=== PATIENT | male | born 1950 | race Caucasian/White ===

== ENCOUNTER → 2018-03-23 08:03 | Outpatient (CLI) | payer BC, MEDICARE, SELFPAY ==
[2018-03-23 08:21] LABS: Basophils # 0.1 K/mm3 (0-0.2); Basophils % 1.2 % (0.1-2.0); Eosinophils # 0.6 K/mm3 (0.0-0.4); Eosinophils % 9.7 % (0.1-12.0); Hematocrit 48.2 % (42.0-52.0); Hemoglobin 15.9 g/dL (14.1-18.0); Lymphocytes # 2.2 K/mm3 (0.7-4.5); Lymphocytes % 35.8 K/mm3 (10-50); Mean Corpuscular HGB Conc 32.9 g/dL (31.8-35.4); Mean Corpuscular Hemoglobin 29.7 pg (27.0-31.2); Mean Corpuscular Volume 90.3 fl (80-94); Monocytes # 0.3 K/mm3 (0.1-1.0); Monocytes % 5.4 % (1.7-9.3); Neutrophils # 2.9 K/mm3 (1.8-7.8); Neutrophils % 47.9 % (37.0-80.0); Platelet Count 219 K/mm3 (142-424); Red Blood Count 5.34 M/mm3 (4.60-6.20); White Blood Count 6.1 K/mm3 (4.8-10.8)
[2018-03-23 09:18] LABS: Alanine Aminotransferase 41 U/L (12-78); Albumin Level 3.9 gm/dL (3.4-5.0); Albumin/Globulin Ratio 1.3 (1.1-1.8); Alkaline Phosphatase 62 U/L (46-116); Aspartate Amino Transferase 22 U/L (15-37); Bilirubin,Total 0.8 mg/dL (0.2-1.0); Blood Urea Nitrogen 13 mg/dL (7-18); Calcium 9.5 mg/dL (8.5-10.1); Carbon Dioxide 33 mmol/L (21.0-32.0); Chloride 106 mmol/L (98-107); Chol/HDL Ratio 3.7 (1-3.5); Cholesterol 207 mg/dL (140-200); Creatinine,Serum 1.04 mg/dL (0.70-1.30); Estimated Glomerular Filt Rate 71 ml/min (>60); GFR (African American) 86 ML/MIN (>60); Globulin 2.9 gm/dl (1.3-3.2); Glucose 113 mg/dL (74-106); HDL Cholesterol 56 mg/dL (27-67); LDL Cholesterol 135 mg/dL (0-130); Sodium 142 mmol/L (136-145); Total Protein,Serum 6.8 gm/dL (6.4-8.2); Triglycerides 78 mg/dL (30-200); VLDL Cholesterol 16 mg/dL (0-40)
== END ==
PROVIDERS: PCP Internal Medicine Adolescent Medicine; Visit Provider Internal Medicine Adolescent Medicine
DX: E78.5 Hyperlipidemia, unspecified (principal); K63.5 Polyp of colon; J45.30 Mild persistent asthma, uncomplicated
CPT/HCPCS: 36415; 80053; 80061; 85025

== ENCOUNTER 2018-09-30 16:00 | Outpatient (RCR) | payer BC, MEDICARE, SELFPAY | END 2018-09-30 16:05 | disposition home or self-care (01) | LOC: PT 16:00 | PROVIDERS: Visit Provider Orthopaedic Surgery | DX: Z96.651 Presence of right artificial knee joint (principal); M17.11 Unilateral primary osteoarthritis, right knee | CPT/HCPCS: 97010; 97014; 97016; 97110; 97140; 97163; 97164; G0283 ==

== ENCOUNTER → 2018-10-28 08:20 | Outpatient (CLI) | payer BC, MEDICARE, SELFPAY ==
[2018-10-28 10:02] LABS: Alanine Aminotransferase 26 U/L (12-78); Albumin Level 3.9 gm/dL (3.4-5.0); Albumin/Globulin Ratio 1.4 (1.1-1.8); Alkaline Phosphatase 66 U/L (46-116); Anion Gap 11.7 mEq/L (5-15); Aspartate Amino Transferase 18 U/L (15-37); Bilirubin,Total 0.7 mg/dL (0.2-1.0); Blood Urea Nitrogen 17 mg/dL (7-18); Calcium 9.3 mg/dL (8.5-10.1); Carbon Dioxide 29 mmol/L (21.0-32.0); Chloride 107 mmol/L (98-107); Creatinine,Serum 1.09 mg/dL (0.70-1.30); Estimated Glomerular Filt Rate 67 ml/min (>60); GFR (African American) 82 ML/MIN (>60); Globulin 2.7 gm/dl (1.3-3.2); Glucose 104 mg/dL (74-106); Potassium 4.7 mmoL/L (3.5-5.1); Sodium 143 mmol/L (136-145); Total Protein,Serum 6.6 gm/dL (6.4-8.2)
[2018-10-28 10:03] LABS: Hemoglobin A1C 5.4 % (0.0-7.0)
== END ==
PROVIDERS: Visit Provider Internal Medicine Adolescent Medicine
DX: R73.9 Hyperglycemia, unspecified (principal)
CPT/HCPCS: 36415; 80053; 83036

== ENCOUNTER → 2019-03-28 07:04 | Outpatient (CLI) | payer BC, MEDICARE, SELFPAY ==
[2019-03-28 08:48] LABS: Basophils # 0.1 K/mm3 (0-0.2); Basophils % 0.8 % (0.1-2.0); Eosinophils # 0.6 K/mm3 (0.0-0.4); Eosinophils % 5.5 % (0.1-12.0); Hemoglobin 15.9 g/dL (14.1-18.0); Lymphocytes # 3.5 K/mm3 (0.7-4.5); Lymphocytes % 31.5 % (10-50); Mean Corpuscular HGB Conc 33.2 g/dL (31.8-35.4); Mean Corpuscular Hemoglobin 30.4 pg (27.0-31.2); Mean Corpuscular Volume 91.7 fl (80-94); Mean Platelet Volume 7.2 fl (7.4-10.4); Monocytes # 0.6 K/mm3 (0.1-1.0); Monocytes % 5.2 % (1.7-9.3); Neutrophils # 6.3 K/mm3 (1.8-7.8); Platelet Count 318 K/mm3 (142-424); Red Blood Count 5.24 M/mm3 (4.60-6.20); Red Cell Distribution Width 13.2 % (11.5-17.5)
[2019-03-28 09:03] LABS: Alanine Aminotransferase 37 U/L (12-78); Albumin Level 3.5 gm/dL (3.4-5.0); Albumin/Globulin Ratio 1.3 (1.1-1.8); Alkaline Phosphatase 77 U/L (46-116); Anion Gap 10.6 mEq/L (5-15); Aspartate Amino Transferase 17 U/L (15-37); Bilirubin,Total 0.4 mg/dL (0.2-1.0); Blood Urea Nitrogen 16 mg/dL (7-18); Calcium 9.3 mg/dL (8.5-10.1); Carbon Dioxide 31 mmol/L (21.0-32.0); Chloride 105 mmol/L (98-107); Chol/HDL Ratio 3.6 (1-3.5); Cholesterol 183 mg/dL (140-200); Creatinine,Serum 0.94 mg/dL (0.70-1.30); Estimated Glomerular Filt Rate 80 ml/min (>60); GFR (African American) 97 ML/MIN (>60); Globulin 2.7 gm/dl (1.3-3.2); Glucose 98 mg/dL (74-106); HDL Cholesterol 51 mg/dL (27-67); LDL Cholesterol 118 mg/dL (0-130); Potassium 4.6 mmoL/L (3.5-5.1); Prostate Specific Ag Screen 0.8 ng/mL (0.0-4.0); Sodium 142 mmol/L (136-145); Total Protein,Serum 6.2 gm/dL (6.4-8.2); Triglycerides 70 mg/dL (30-200); VLDL Cholesterol 14 mg/dL (0-40)
[2019-03-28 10:10] LABS: Hemoglobin A1C 5.8 % (0.0-7.0)
== END ==
PROVIDERS: Visit Provider Internal Medicine Adolescent Medicine
DX: Z00.00 Encounter for general adult medical examination without abnormal findings (principal); Z12.5 Encounter for screening for malignant neoplasm of prostate
CPT/HCPCS: 36415; 80053; 80061; 83036; 85025; G0103

== ENCOUNTER → 2020-03-13 12:55 | Outpatient (CLI) | payer BC, MEDICARE, SELFPAY ==
--- NOTE | 2020-03-13 | XR_ITS ---
PROCEDURE: XR SACROILIAC JOINT BI MIN 3V CLINICAL INDICATION: R HIP PAIN, ARTHROPATHY OF R SACROILIAC JOINT COMPARISON: No exams were available for comparison FINDINGS: No fracture or dislocation. No lytic or blastic change. There is normal mineralization. The joint spaces are well-preserved. No significant degenerative/arthritic changes. No erosive changes evident. Other findings:Postsurgical changes at the lumbosacral junction. Please see lumbar spine report IMPRESSION: Negative SI joints Dictated by: Spencer Bowles MD 03/13/2020 14:50 Spencer Bowles MD in [place] 03/13/2020 14:50
--- NOTE | 2020-03-13 | XR_ITS ---
PROCEDURE: XR LUMBAR SPINE MIN 4V CLINICAL INDICATION: R HIP PAIN, ARTHROPATHY OF R SACROILIAC JOINT COMPARISON: CT ABWWO CT ABD W/WO CONTRAST from 08/14/2014 CR [id number] LUMBAR SPINE-2 TO 3 VIEWS from 12/10/2014 FINDINGS: No fracture or dislocation. No lytic or blastic change. There is normal mineralization. Minimal dextroscoliosis of the lumbar spine. There is degenerative disc disease at L1-L2 with small anterior osteophytes and minimal retrolisthesis of L1 of 5 mm. A sclerotic focus involves the posterior aspect of the L2 vertebral body unchanged and may be due to a bone island. There is degenerative disc disease at L4-5 and L5-S1 with postsurgical changes with inter pedicular screws at L5 and S1 with disc spacer at L5-S1. There is degenerative disc disease at L4-5 which is increased compared to the previous exam. One of the inter pedicular screws overlies the L4-5 disc space. Previously both screws were along the superior endplate of L5. There is some increased sclerosis along the inferior aspect of L4 vertebral body. Screw migration is a consideration. This may be the screw on the right at the L5 region. Suggest CT for further evaluation. IMPRESSION: 1. Degenerative changes and postsurgical changes as described above. 2. There is question of screw migration of the right L5 inter pedicular screw . CT may provide further evaluation. Dictated by: Spencer Bowles MD 03/13/2020 14:44 Spencer Bowles MD in [place] 03/13/2020 14:44
--- NOTE | 2020-03-13 | XR_ITS ---
PROCEDURE: XR HIP RT 2-3V W/PELVIS CLINICAL INDICATION: R HIP PAIN, ARTHROPATHY OF R SACROILIAC JOINT COMPARISON: CT ABDPELW/O CT ABD PELVIS W/O CONTRAST from 05/25/[address] ABD W/WO CONTRAST from 08/14/2014 FINDINGS: No fracture or dislocation. No lytic or blastic change. There is only minimal decrease in the joint space superiorly with minimal osteosclerosis suggesting minimal osteoarthritic change. The SI joint has an unremarkable appearance. There is an area of sclerosis of the right femoral head in the subcortical region suspicious for avascular necrosis. IMPRESSION: 1. 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 MRI may confirm. 2. Mild osteoarthritic change. Dictated by: Spencer Bowles MD 03/13/2020 14:48 Spencer Bowles MD in [place] 03/13/2020 14:48
== END ==
PROVIDERS: PCP Internal Medicine Adolescent Medicine; Visit Provider Internal Medicine Adolescent Medicine
DX: M25.551 Pain in right hip (principal); M47.818 Spondylosis without myelopathy or radiculopathy, sacral and sacrococcygeal region
CPT/HCPCS: 72110; 72202; 73502

== ENCOUNTER → 2020-03-25 13:26 | Outpatient (CLI) | payer BC, MEDICARE, SELFPAY ==
--- NOTE | 2020-03-25 13:31 | CT_ITS ---
PROCEDURE: CT LUMBAR SPINE WO CON CLINICAL HISTORY: ARTHROPATHY OF RT SACROILIAC JOINT,RT HIP PAIN Right-sided back pain, right hip pain COMPARISON: CT ABWWO CT ABD W/WO CONTRAST from 08/14/2014 CR LS23V LUMBAR SPINE-2 TO 3 VIEWS from 12/10/2014 CR XR LUMBAR SPINE MIN 4V from 03/13/2020 TECHNIQUE: Axial images obtained with sagittal and coronal reformats. All CT scans at the facility use one or more dose reduction, viz: automated exposure control, ma/kV adjustment per patient size (including targeted exams where dose is matched to indication, i.e. head), or iterative reconstruction technique. FINDINGS: No acute fracture or dislocation is evident. L1-L2: There is mild degenerative disc disease with mild retrolisthesis of L1 of 3 mm. There is mild bulging disc at this level. L2-L3: Minimal bulging disc. L3-L4: There is mild bulging disc slightly eccentric toward the left with mild left lateral recess narrowing. L4-5: There are inter pedicular screws in place with connecting rods at L4-5 and L5-S1. On the right this screw extends from the mid facet region of L5 into the pars interarticularis and along the disc space into the lower endplate of the L4 vertebral body on the right with some surrounding sclerosis. There is sclerosis of the L4 vertebral endplate at this level. The screw does traverse the inferior aspect of the L4-5 neural foramen on the right. The inter pedicular screw on the left passes through the pars interarticularis region into the pedicle and into the superior aspect of the L5 vertebral body. There is degenerative disc disease at L4-5. Significant artifact obscures fine detail. No evidence of screw fracture. There is endplate sclerosis with sub chondral cystic changes. L5-S1: There is 5 mm anterolisthesis of L5 on S1. There is spondylitic spondylolisthesis at this level. Inter pedicular screws are present at S1 the There has been prior laminectomy at L5 and S1. Bony hypertrophy is present on the left at L5-S1 of the facets causing left-sided foraminal narrowing. There are incidental bilateral renal cysts and bilateral renal calculi measuring up to 6 mm in the lower pole on the right. IMPRESSION: 1. Degenerative changes of the lumbar spine as detailed above. 2. L4-5: There are inter pedicular screws in place with connecting rods at L4-5 and L5-S1. On the right this screw extends from the mid facet region of L5 into the pars interarticularis and along the disc space into the lower endplate of the L4 vertebral body on the right with some surrounding sclerosis. There is sclerosis of the L4 vertebral endplate at this level. The screw does traverse the inferior aspect of the L4-5 neural foramen on the right. The inter pedicular screw on the left passes through the pars interarticularis region into the pedicle and into the superior aspect of the L5 vertebral body. There is degenerative disc disease at L4-5. Significant artifact obscures fine detail. No evidence of screw fracture. There is endplate sclerosis with sub chondral cystic changes. 3. L5-S1: There is 5 mm anterolisthesis of L5 on S1. There is spondylitic spondylolisthesis at this level. Inter pedicular screws are present at S1. There has been prior laminectomy at L5 and S1. Bony hypertrophy is present on the left at L5-S1 of the facets causing left-sided foraminal narrowing. 4. Bilateral nephrolithiasis Dictated by: Spencer Bowles MD 03/25/2020 14:29 Spencer Bowles MD in [place] 03/25/2020 14:29
== END ==
PROVIDERS: PCP Internal Medicine Adolescent Medicine; Visit Provider Internal Medicine Adolescent Medicine
DX: M47.818 Spondylosis without myelopathy or radiculopathy, sacral and sacrococcygeal region (principal); M25.551 Pain in right hip
CPT/HCPCS: 72131

== ENCOUNTER → 2020-04-04 07:31 | Outpatient (CLI) | payer BC, MEDICARE, SELFPAY ==
[2020-04-04 08:29] LABS: Basophils # 0.1 K/mm3 (0-0.2); Basophils % 1.1 % (0.1-2.0); Eosinophils # 0.4 K/mm3 (0.0-0.4); Eosinophils % 4.5 % (0.1-12.0); Hematocrit 47.4 % (42.0-52.0); Hemoglobin 16.2 g/dL (14.1-18.0); Lymphocytes # 2.8 K/mm3 (0.7-4.5); Lymphocytes % 32.2 % (10-50); Mean Corpuscular HGB Conc 34.1 g/dL (31.8-35.4); Mean Corpuscular Hemoglobin 31.3 pg (27.0-31.2); Mean Corpuscular Volume 91.8 fl (80-94); Mean Platelet Volume 7.2 fl (7.4-10.4); Monocytes # 0.4 K/mm3 (0.1-1.0); Monocytes % 4.6 % (1.7-9.3); Neutrophils % 57.6 % (37.0-80.0); Platelet Count 251 K/mm3 (142-424); Red Blood Count 5.16 M/mm3 (4.60-6.20); Red Cell Distribution Width 12.9 % (11.5-17.5); White Blood Count 8.7 K/mm3 (4.8-10.8)
[2020-04-04 09:27] LABS: Alanine Aminotransferase 29 U/L (12-78); Albumin Level 3.9 g/dl (3.5-5.0); Albumin/Globulin Ratio 1.8 (1.1-1.8); Alkaline Phosphatase 61 U/L (38-126); Anion Gap 11.3 mEq/L (5-15); Aspartate Amino Transferase 26 U/L (17-59); Bilirubin,Total 0.7 mg/dl (0.2-1.3); Blood Urea Nitrogen 15 mg/dl (9-20); Calcium 9.7 mg/dl (8.4-10.2); Carbon Dioxide 29 mmol/L (22.0-30.0); Chloride 105 mmol/L (98-107); Chol/HDL Ratio 3.5 (1-3.5); Cholesterol 181 mg/dl (140-200); Estimated Glomerular Filt Rate 84 ml/min (>60); GFR (African American) 102 ML/MIN (>60); Globulin 2.2 g/dL (1.3-3.2); Glucose 105 mg/dl (74-100); HDL Cholesterol 52 mg/dl (40-60); Potassium 5.3 mmoL/L (3.5-5.1); Sodium 140 mmol/L (136-145); Total Protein,Serum 6.1 g/dl (6.3-8.2); Triglycerides 101 mg/dl (30-150); VLDL Cholesterol 20 mg/dL (0-40)
[2020-04-04 09:38] LABS: Direct LDL Cholesterol 112.52 mg/dL (100-129)
[2020-04-04 09:57] LABS: Prostate Specific Ag Screen 0.7 ng/ml (0.0-4.0)
== END ==
PROVIDERS: Visit Provider Internal Medicine Adolescent Medicine
DX: K63.5 Polyp of colon (principal); E78.5 Hyperlipidemia, unspecified; Z12.5 Encounter for screening for malignant neoplasm of prostate
CPT/HCPCS: 36415; 80053; 80061; 83036; 85025; G0103

== ENCOUNTER → 2020-04-11 13:49 | Outpatient (CLI) | payer BC, MEDICARE, SELFPAY ==
--- NOTE | 2020-04-11 14:04 | MR_ITS ---
PROCEDURE: MR LUMBAR SPINE WO CON CLINICAL INDICATION: SPONDYLOLISTHESIS prior back surgery 2014. back pain worse on rt side. symptoms x1.5months. COMPARISON: CT CT LUMBAR SPINE WO CON from 03/25/2020 TECHNIQUE: Standard multiplanar multiecho sequences are performed without contrast. 3-D MIP and myelographic images are also rendered and reviewed FINDINGS: The spinal cord ends at the L1 level. T11-T12: Mild degenerative disc disease. T12-L1: Unremarkable. L1-L2: Mild degenerative disc disease with 2 mm retrolisthesis of L1 and minimal bulging disc. No canal stenosis. L2-L3: Unremarkable. L3-L4: Unremarkable. L4-5: There is degenerative disc disease. There is significant artifact at this level from inter pedicular screws. The inter pedicular screws obscure evaluation of the underlying foramina and nerve roots. The right-sided screw however does appear 2 traverse the inferior aspect of the foramen however the overlying nerve root is not visible no canal stenosis. There is minimal bulging disc at this level. Prior laminectomy L5-S1: Artifact from inter pedicular screws. There is 5 mm anterolisthesis of L5. There is moderate to severe left-sided foraminal narrowing. Prior laminectomy No extruded herniated disc. No canal stenosis. There are bilateral renal cysts. IMPRESSION: 1. L1-L2: Mild degenerative disc disease with 2 mm retrolisthesis of L1 and minimal bulging disc. No canal stenosis. 2. L4-5: There is degenerative disc disease. There is significant artifact at this level from inter pedicular screws. The inter pedicular screws obscure evaluation of the underlying foramina and nerve roots. The right-sided screw however does appear 2 traverse the inferior aspect of the foramen however the overlying nerve root is not visible no canal stenosis. There is minimal bulging disc at this level. Prior laminectomy 3. L5-S1: Artifact from inter pedicular screws. There is 5 mm anterolisthesis of L5. There is moderate to severe left-sided foraminal narrowing. Prior laminectomy 4. No canal stenosis or extruded herniated disc. 5. The course of the inter pedicular screws and bony relationship is better demonstrated on the CT scan. The neural elements are not well delineated at the area of the per surgical changes due to artifact. Dictated by: Spencer Bowles MD 04/14/2020 08:58 Spencer Bowles MD in [place] 04/14/2020 08:58
== END ==
PROVIDERS: PCP Internal Medicine Adolescent Medicine; Visit Provider Neurological Surgery
DX: M43.17 Spondylolisthesis, lumbosacral region (principal)
CPT/HCPCS: 72148; 76376

== ENCOUNTER 2020-05-31 10:00 | Outpatient (RCR) | payer BC, MEDICARE, SELFPAY | END 2020-05-31 11:15 | disposition home or self-care (01) | LOC: PT 10:00 | PROVIDERS: PCP Internal Medicine Adolescent Medicine; Visit Provider Neurological Surgery | DX: M54.5 Low back pain; M51.36 Other intervertebral disc degeneration, lumbar region; Z98.1 Arthrodesis status | CPT/HCPCS: 20560; 20561; 97010; 97014; 97035; 97110; 97163; 97164; G0283 ==

== ENCOUNTER → 2020-07-11 09:56 | Outpatient (POV) | payer BC, MEDICARE, SELFPAY ==
[2020-07-11 10:19] VITALS: BP 180/99; PULSE 83; RESP 20; TEMP 36.6; O2SAT 96; BMI 28.5
--- NOTE | 2020-07-11 10:43 | HMH.PMCON ---
Assessment and Plan (1) Degenerative joint disease (DJD) of lumbar spine Status: Chronic Category: Medical Code(s): M47.816 - Spondylosis without myelopathy or radiculopathy, lumbar region (2) Lumbar radiculopathy Status: Chronic Category: Medical Code(s): M54.16 - Radiculopathy, lumbar region - Assessment and plan all Dx Assessment and Plan for all problems:: Patient has tried and failed conservative therapies of physical therapy and home stretching as well as oral medications. Patient has had surgical intervention with Dr. Reynolds in 2014. Recently, Dr. MARTINEZ give the patient prednisone for which he did get short-term relief. As a result, Dr. Reynolds did refer the patient to us for injective therapy. We will schedule the patient for a lumbar epidural steroid injection at L4-L5. Patient is not on anticoagulation therapy. He will continue with a home stretching program and his physical therapy. We will see him back in the clinic after his injection to reassess his symptoms. Risks and benefits of the injection were explained to the patient and he would like to proceed with the injection. Patient has been instructed to contact clinic if he has any concerns before his next appointment. The patient and I specifically discussed risk factors for COVID19. These risks include, but are not limited to age greater than 60, heart or lung disease, diabetes, immunosuppression, and travel. We also discussed NSAIDs may worsen COVID19 infection or symptoms. Patient should not use NSAIDs to treat COVID19 signs or symptoms. Patient was also informed that any type of corticosteroid of any form (oral or injection) will decrease the patient's immune system response and may increase the likelihood of COVID19 [address] symptoms[address] Newell has reviewed this note and agrees with this plan of care. This note was dictated using voice recognition software and make contain errors or omissions. HPI - Data of Consult Patient: new to practice Consult date: 07/11/20 Requesting Physician: Marylu Marx APRN Primary Care Provider: Lalito Martin MD - Consult Narrative Reason for consult: Low back pain History of present illness: Mr. Vance is a 70 year old male who presents today for consultation for chronic low back pain. Patient was referred to us by Dr. Reynolds. He did undergo a laminectomy in [address] Reynolds. Patient says he did very well until February of this year. He says he was doing a great deal of golfing and started to notice some significant pain. He also says that he underwent a right knee surgery and was having significant pain just before his knee surgery, however, the pain did subside following the knee surgery. He says the pain has returned and is progressively getting worse. Patient has been undergoing physical therapy over the past 6 weeks along with a continued home stretching program. He says that he does get short-term relief but his pain does return. He rates his pain a 7 out of 10. Patient was sent to our clinic for possible injective therapy. Patient is exhibiting neurogenic claudication type symptoms. He says that his pain is worse with standing and walking, however, it does improve when he is sitting. He also reports that leaning forward gives him a great deal of relief. Patient did have a previous prescription of oral medications that he has been taking as needed. CC: Mraylu Marx APRN [facility] History I have reviewed the patient's past medical history: Yes Medical History: Reports:: Asthma, Hyperlipidemia, Hypertension, Lung Disease (hx asthma) Denies:: Cancer, Diabetes Mellitus Type 1, Diabetes Mellitus Type 2, Internal Pacemaker, MRSA, Seizures *Have you ever received a pneumonia vaccine?: Yes *Have you received a flu vaccine this season?: Yes Laterality Cases: Right: Arthroscopy Knee, Total Knee Replacement Other Surgeries: Yes: Sinus Surgery, Other (lumbar fusion-dr. reynolds 2014). No: Pacemaker Amputatio
== END ==
PROVIDERS: PCP Internal Medicine Adolescent Medicine; Visit Provider Clinical Nurse Specialist Family Health
DX: M47.896 Other spondylosis, lumbar region (principal); M54.16 Radiculopathy, lumbar region
CPT/HCPCS: 99202

== ENCOUNTER 2020-07-24 15:16 | Day surgery (SDC) | payer BC, MEDICARE, SELFPAY ==
[2020-07-24 16:08] VITALS: BP 122/74; BP 128/88; BP 150/72; PULSE 65; PULSE 82; PULSE 85; RESP 18; TEMP 36.3; O2SAT 96; O2SAT 98; BMI 28.6
--- NOTE | 2020-07-24 16:10 | HMH.PMPROC ---
- Procedure Date: 07/24/20 Time: 16:10 Anesthesiologist:: Radames Newell MD Complications:: None Pre-procedure Diagnosis:: Degenerative disc disease of lumbar spine with lumbar radiculopathy symptoms. Post laminectomy syndrome lumbar spine Post-procedure Diagnosis:: Same Indications for Procedure:: Patient is a pleasant 70-year-old white male who we are treating for low back pain with lumbar radiculopathy symptoms and postlaminectomy syndrome lumbar spine. He was doing well after his laminectomy by Dr. Reynolds until recently when he started playing golf and has some increasing low back pain and leg pain. We will do a lumbar pleural steroid injection today to help him with his pain symptoms. Procedure Details:: Lumbar epidural steroid injection under fluoroscopy Informed consent was obtained and the risk and benefits of the procedure was explained to the patient. The patient was taken to the procedure room. The patient was placed prone on the procedure table. The patient was prepped and draped in sterile fashion. C-arm fluoroscopy was used to view the lumbar spine. Skin and subcutaneous tissues were anesthetized using lidocaine. I placed an 18-gauge epidural needle and advanced into the L4-L5 interspace using fluoroscopic guidance and [id number] to air. After confirmation of needle placement in the epidural space with dye I injected 2 mL of lidocaine 1.5% with Depo-Medrol 80 mg. Patient tolerated the procedure well with no complications. Plan and Disposition:: We will follow-up with him in 2 weeks. Will reevaluate symptoms at that time.
[2020-07-24 16:21] VITALS: BP 161/77; PULSE 82; RESP 18; O2SAT 96
== END 2020-07-24 16:22 | disposition home or self-care (01) ==
LOC: SC.PAINP 15:19
PROVIDERS: PCP Internal Medicine Adolescent Medicine; Visit Provider Anesthesiology
DX: M51.16 Intervertebral disc disorders with radiculopathy, lumbar region (principal); M96.1 Postlaminectomy syndrome, not elsewhere classified; I10 Essential (primary) hypertension; E78.5 Hyperlipidemia, unspecified
CPT/HCPCS: 62323; Q9966

== ENCOUNTER → 2020-08-15 14:39 | Outpatient (POV) | payer BC, MEDICARE, SELFPAY ==
[2020-08-15 15:18] VITALS: BP 125/84; PULSE 79; RESP 18; O2SAT 98; BMI 28.5
--- NOTE | 2020-08-15 16:29 | P.CONS_ITS ---
[facility] Pain Management SOAP Note Subjective:: Patient is a pleasant 70-year-old white male who presents today for follow-up after lumbar epidural steroid injection. Patient got 1 week relief he rates his pain today a 4 out of 10. Patient pain is extremely focal he has difficulty with twisting motions. He is an avid golfer. Patient has positive facet loading lumbar spine. Patient potentially could be a neurotomy candidate. I discussed diagnostic medial branch block. He would like to move forward with this. Patient's not on any anticoagulation therapy. He is tried and failed other modalities including 6 weeks of physical therapy, medications, anti- inflammatories and epidurals. ROS General: no recent weight change, no fever, no sleep disturbances Respiratory: no cough, no shortness of air, no recurring pulmonary infections Cardiovascular/Peripheral Vascular: No chest pain, No palpitations, no edema, no shortness of breath. Gastrointestinal: no new onset incontinence, normal bowel movements reported Genitourinary: no new onset incontinence Musculoskeletal: Back pain Psychiatric: normal mood/ affect Neurological: [denies new onset weakness in extremities], [denies new onset balance issues] Objective:: Physical Exam General: Alert and oriented x3, no acute distress, pleasant and cooperative, [on room air] Lungs: Resps E/U, Symmetrical chest expansion, Eyes: PERRL Musculoskeletal: Flexion and extension of lumbar spine somewhat guarded secondary to pain, deep tendon reflexes normal, strength in upper and lower extremities [5/5], slightly antalgic gait noted Neurological: speech clear, 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 To see if he is a candidate for a neurotomy. Patient's not on any anticoagulation therapy he has failed other modalities of treatment. If he does not get relief from his medial branch block we will discuss returning to Dr. Reynolds for evaluation. Patient is in agreements. We will move forward with this. Dr. Newell has reviewed this note and agrees with this plan of care. This note was dictated using voice recognition software and may contain errors or omissions [facility] History I have reviewed the patient's past medical history: Yes Medical History: Reports:: Asthma, Hyperlipidemia, Hypertension, Lung Disease (hx asthma) Denies:: Cancer, Diabetes Mellitus Type 1, Diabetes Mellitus Type 2, Internal Pacemaker, MRSA, Seizures *Have you ever received a pneumonia vaccine?: Yes *Have you received a flu vaccine this season?: Yes Other Medical History: Denies: Blood Transfusion Reaction Laterality Cases: Right: Arthroscopy Knee Other Surgeries: Yes: Sinus Surgery, Other (lumbar fusion-dr. reynolds 2014). No: Pacemaker Amputation: No Fractures: No - *Social History Alcohol Intake: never *Occupational Status:: other Housing: house Household Members: spouse *Travel in the last 8 weeks: None Family Hx:: No significant family history
== END ==
PROVIDERS: PCP Internal Medicine Adolescent Medicine; Visit Provider Clinical Nurse Specialist Family Health
DX: M51.36 Other intervertebral disc degeneration, lumbar region (principal); M96.1 Postlaminectomy syndrome, not elsewhere classified; M54.06 Panniculitis affecting regions of neck and back, lumbar region
CPT/HCPCS: 99212; G0463

== ENCOUNTER 2020-08-23 11:36 | Day surgery (SDC) | payer BC, MEDICARE, SELFPAY ==
[2020-08-23 12:01] VITALS: BP 154/86; PULSE 74; RESP 18; TEMP 36.6; O2SAT 98; BMI 28.5
--- NOTE | 2020-08-23 12:54 | P.PCN_ITS ---
- Procedure Date: 08/23/20 Time: 12:54 Anesthesiologist:: Radames Newell MD Complications:: None Pre-procedure Diagnosis:: Degenerative disc disease of lumbar spine with lumbar spondylosis and lumbar facet arthropathy. Postlaminectomy syndrome lumbar spine Post-procedure Diagnosis:: Same Indications for Procedure:: Patient is a pleasant 70-year-old white male who we are treating for low back pain with lumbar radiculopathy symptoms and postlaminectomy syndrome of lumbar spine with lumbar facet arthropathy. He is an avid golfer and has aggravated it facet joints with increased golf this summer. He has seen Dr. Reynolds and Dr. Reynolds did evaluate his MRI and imaging with no malpositioning of any hardware. He thought that his pain may be facet mediated. We will do bilateral lumbar m edial branch blocks/facet joint injections of L4-5 L5-S1 today. Procedure Details:: Lumbar medial branch block Informed consent was obtained and the risks and benefits of the procedure was explained to the patient. The back was prepped using ChloraPrep. The skin and subcutaneous tissues were anesthetized using lidocaine. I placed 22-gauge spinal needles into the facet joint/medial branches of L4-L5 and L5-S1 bilaterally. Needle placement was confirmed with dye. After this we injected 3 mL bupivacaine 0.25% and Depo-Medrol 20 mg into each facet joint/medial branch of L4-L5 and L5-S1 bilaterally. We used a total of 80 mg Depo-Medrol for both levels bilaterally. The patient tolerated the procedure well with no complications. Plan and Disposition:: We will follow-up with him in 2 weeks. Will reevaluate symptoms at that time. If he does get success from these we will plan on RF ablation to these facet joints of L4-5 and L5-S1 bilaterally.
[2020-08-23 12:59] VITALS: BP 132/85; PULSE 89; RESP 18; O2SAT 99
[2020-08-23 13:26] VITALS: BP 156/87; PULSE 60; RESP 18; TEMP 36.6; O2SAT 98
== END 2020-08-23 13:05 | disposition home or self-care (01) ==
LOC: SC.PAINP 11:38
PROVIDERS: PCP Internal Medicine Adolescent Medicine; Visit Provider Anesthesiology
DX: M51.36 Other intervertebral disc degeneration, lumbar region (principal); M47.816 Spondylosis without myelopathy or radiculopathy, lumbar region; M96.1 Postlaminectomy syndrome, not elsewhere classified; I10 Essential (primary) hypertension; E78.5 Hyperlipidemia, unspecified; J45.909 Unspecified asthma, uncomplicated; Z79.82 Long term (current) use of aspirin; Z79.899 Other long term (current) drug therapy
CPT/HCPCS: 64493; 64494; J1030; Q9966

== ENCOUNTER → 2020-09-19 11:29 | Outpatient (POV) | payer BC, MEDICARE, SELFPAY ==
[2020-09-19 12:26] VITALS: BP 139/88; PULSE 72; RESP 18; O2SAT 99; BMI 28.6
--- NOTE | 2020-09-19 16:38 | HMH.PAINSOAP ---
[facility] Pain Management SOAP Note Subjective:: Patient is a 70-year-old white male who presents today for follow-up after lumbar medial branch block. He was referred to our clinic in the past by Dr. Reynolds. He reports that he had a laminectomy in July 2014 and was doing well. He became more active due to significant pain relief. He does report that in February 2020 he was playing golf and felt that he had some worsening pain in his low back. The pain progressively gotten worse. He did see his primary care provider who performed an MRI. There is question regarding the hardware in his spine at that time. Dr. Reynolds did see the patient again per the request of Dr. Ventura. The recommendation was to undergo injective therapy at that time, however, the patient has tried epidural steroid injections along with medial branch blocks in the clinic and has not gotten any type of relief. Patient says that he would like to refer back to Dr. Reynolds at this point. His pain is a 5 out of 10. Patient says his pain is worse when he leans forward. Review of Systems General: No recent weight changes, no fever, no sleep disturbances Respiratory: No cough, no shortness of air, no recurring pulmonary infections Cardiovascular/peripheral vascular: No chest pain, no palpitations, no edema, no shortness of breath Gastrointestinal: No new onset incontinence, normal bowel movements reported Genitourinary: No new onset incontinence Musculoskeletal: Low back pain worse with bending forward Psychiatric: Normal mood/affect Neurological: [Denies weakness in extremities], [denies balance issues] Objective:: Physical exam General: Alert and oriented x3, no acute distress, pleasant and cooperative, [on room air] Lungs: Respirations even and unlabored, symmetrical chest expansion Eyes: PERRL Musculoskeletal: Flexion and extension of lumbar spine somewhat guarded secondary to pain, deep tendon reflexes normal, strength in upper and lower extremities [5/5], [abnormal gait noted] Neurological: Speech clear, illustrator set equal, no gross sensory deficit Assessment:: Degenerative disc disease lumbar spine with lumbar spondylosis and lumbar facet arthropathy, postlaminectomy syndrome lumbar spine Plan:: We will refer the patient back to Dr. Reynolds. He did not get any relief with the lumbar epidural steroid injection or with his medial branch blocks. He says at this point he would not like to proceed with any further injective therapy. He would like to be referred back to Dr. Reynolds to discuss further options with Dr. Reynolds. We will refer him back to Dr. Reynolds and plan to see him back in the future if he does wish to undergo injective therapy. We will follow-up with the patient in 1 month to reevaluate his symptoms and to discuss recommendations of Dr. Reynolds. The patient and I specifically discussed risk factors for COVID19. These risks include, but are not limited to age greater than 60, heart or lung disease, diabetes, immunosuppression, and travel. We also discussed NSAIDs may worsen COVID19 infection or symptoms. Patient should not use NSAIDs to treat COVID19 signs or symptoms. Patient was also informed that any type of corticosteroid of any form (oral or injection) will decrease the patient's immune system response and may increase the likelihood of COVID19 [address] Newell has reviewed this note and agrees with this plan of care. This note was dictated using voice recognition software and make contain errors or omissions. [facility] History I have reviewed the patient's past medical history: Yes Medical History: Reports:: Asthma, Hyperlipidemia, Hypertension, Lung Disease (hx asthma) Denies:: Cancer, Diabetes Mellitus Type 1, Diabetes Mellitus Type 2, Internal Pacemaker, MRSA, Seizures *Have you ever received a pneumonia vaccine?: Yes *Have you received a flu vaccine this season?: Yes Other Medical History: Denies: Blood Transfusion Reaction Laterality Ca
== END ==
PROVIDERS: PCP Internal Medicine Adolescent Medicine; Visit Provider Clinical Nurse Specialist Family Health
DX: M51.16 Intervertebral disc disorders with radiculopathy, lumbar region (principal); M54.06 Panniculitis affecting regions of neck and back, lumbar region; M96.1 Postlaminectomy syndrome, not elsewhere classified
CPT/HCPCS: 99212; G0463

== ENCOUNTER → 2021-02-10 14:28 | Outpatient (CLI) | payer BC, MEDICARE, SELFPAY ==
--- NOTE | 2021-02-10 14:32 | XR_ITS ---
PROCEDURE: XR FOOT WT BEARING LT 3V CLINICAL INDICATION: LT FOOT PAIN COMPARISON: No exams were available for comparison FINDINGS: No fracture or dislocation. No lytic or blastic change. There is normal mineralization. The joint spaces are well-preserved. No significant degenerative/arthritic changes. No erosive changes evident. Other findings:Calcaneal spur is noted. No significant soft tissue abnormality. IMPRESSION: No acute findings. Dictated by: Monique Thomason 02/10/2021 16:26 Monique Thomason in [place] 02/10/2021 16:26
== END ==
PROVIDERS: PCP Internal Medicine Adolescent Medicine; Visit Provider Internal Medicine Adolescent Medicine
DX: M79.672 Pain in left foot (principal)
CPT/HCPCS: 73630

== ENCOUNTER → 2021-03-08 10:45 | Outpatient (CLI) | payer BC, MEDICARE, SELFPAY ==
--- NOTE | 2021-03-08 10:55 | XR_ITS ---
PROCEDURE INFORMATION: Exam: XR Chest Exam date and time: 03/08/2021 10:55 AM Age: 70 years old Clinical indication: Cough; Additional info: Acute bronchopneumonia TECHNIQUE: Imaging protocol: XR of the chest. Views: 2 views. COMPARISON: ABWWO CT ABD W/WO CONTRAST 08/14/2014 9:46 AM FINDINGS: Lungs: Mild opacities in left lung base may represent atelectasis or pneumonia.. Pleural spaces: Unremarkable. No pleural effusion. No pneumothorax. Heart/Mediastinum: Unremarkable. No cardiomegaly. Bones/joints: Unremarkable. IMPRESSION: Mild opacities in left lung base may represent atelectasis or pneumonia..
== END ==
PROVIDERS: PCP Internal Medicine Adolescent Medicine; Referring Provider Internal Medicine Adolescent Medicine; Visit Provider Internal Medicine Adolescent Medicine
DX: J18.0 Bronchopneumonia, unspecified organism (principal)
CPT/HCPCS: 71046

== ENCOUNTER → 2021-03-10 09:09 | Outpatient (CLI) | payer BC, MEDICARE, SELFPAY ==
[2021-03-10 09:39] LABS: Coronavirus 19, PCR Not Detected (NotDetected); Influenza A, PCR Not Detected (NotDetected); Influenza B, PCR Not Detected (NotDetected)
== END ==
PROVIDERS: PCP Internal Medicine Adolescent Medicine; Visit Provider Internal Medicine Adolescent Medicine
DX: Z20.822 Contact with and (suspected) exposure to COVID-19 (principal)
CPT/HCPCS: U0003

== ENCOUNTER → 2021-04-11 07:30 | Outpatient (CLI) | payer BC, MEDICARE, SELFPAY ==
[2021-04-11 07:56] LABS: Basophils # 0.1 K/mm3 (0-0.2); Basophils % 1.2 % (0.1-2.0); Eosinophils # 0.4 K/mm3 (0.0-0.4); Eosinophils % 3.8 % (0.1-12.0); Hematocrit 50.2 % (42.0-52.0); Hemoglobin 16.5 g/dL (14.1-18.0); Lymphocytes # 2.9 K/mm3 (0.7-4.5); Lymphocytes % 31.8 % (10-50); Mean Corpuscular HGB Conc 32.8 g/dL (31.8-35.4); Mean Corpuscular Hemoglobin 30.8 pg (27.0-31.2); Mean Platelet Volume 7.7 fl (7.4-10.4); Monocytes # 0.3 K/mm3 (0.1-1.0); Monocytes % 3.7 % (1.7-9.3); Neutrophils # 5.5 K/mm3 (1.8-7.8); Neutrophils % 59.6 % (37.0-80.0); Platelet Count 285 K/mm3 (142-424); Red Blood Count 5.35 M/mm3 (4.60-6.20); Red Cell Distribution Width 13.4 % (11.5-17.5); White Blood Count 9.2 K/mm3 (4.8-10.8)
[2021-04-11 08:09] LABS: Hemoglobin A1C 5.6 % (4.0-6.0)
[2021-04-11 08:38] LABS: Alanine Aminotransferase 28 U/L (12-78); Albumin Level 4.3 g/dl (3.5-5.0); Albumin/Globulin Ratio 1.8 (1.1-1.8); Alkaline Phosphatase 49 U/L (38-126); Anion Gap 13.8 mEq/L (5-15); Aspartate Amino Transferase 31 U/L (17-59); Bilirubin,Total 0.7 mg/dl (0.2-1.3); Blood Urea Nitrogen 17 mg/dl (9-20); Calcium 9.6 mg/dl (8.4-10.2); Carbon Dioxide 29 mmol/L (22.0-30.0); Chloride 104 mmol/L (98-107); Cholesterol 189 mg/dl (140-200); Estimated Glomerular Filt Rate 84 ml/min (>60); GFR (African American) 101 ML/MIN (>60); Globulin 2.4 g/dL (1.3-3.2); Glucose 105 mg/dl (74-100); HDL Cholesterol 47 mg/dl (40-60); Potassium 4.8 mmoL/L (3.5-5.1); Sodium 142 mmol/L (136-145); Total Protein,Serum 6.7 g/dl (6.3-8.2); Triglycerides 142 mg/dl (30-150); VLDL Cholesterol 28 mg/dL (0-40)
[2021-04-11 08:49] LABS: Direct LDL Cholesterol 118.91 mg/dL (100-129)
[2021-04-11 09:09] LABS: Prostate Specific Ag Screen 0.9 ng/ml (0.0-4.0)
== END ==
PROVIDERS: Visit Provider Internal Medicine Adolescent Medicine
DX: Z00.00 Encounter for general adult medical examination without abnormal findings (principal); E78.5 Hyperlipidemia, unspecified; Z79.899 Other long term (current) drug therapy
CPT/HCPCS: 36415; 80053; 80061; 83036; 85025; G0103

== ENCOUNTER → 2021-07-22 08:07 | Outpatient (CLI) | payer BC, MEDICARE, SELFPAY ==
[2021-07-22 09:04] LABS: Blood Urea Nitrogen 21 mg/dl (9-20); Estimated Glomerular Filt Rate 74 ml/min (>60); GFR (African American) 89 ML/MIN (>60)
== END ==
PROVIDERS: Visit Provider Podiatrist
DX: Z01.812 Encounter for preprocedural laboratory examination (principal)
CPT/HCPCS: 36415; 82565; 84520

== ENCOUNTER → 2021-07-25 12:52 | Outpatient (CLI) | payer BC, MEDICARE, SELFPAY ==
--- NOTE | 2021-07-25 12:52 | MR_ITS ---
PROCEDURE INFORMATION: Exam: MR Left Lower Extremity Joint Without and With Contrast; Ankle Exam date and time: 07/25/2021 12:52 PM Age: 71 years old Clinical indication: Patient HX: Left medial ankle/proximal foot pain without injury TECHNIQUE: Imaging protocol: MR of the Left lower extremity without and with contrast. Exam focused on the ankle. Contrast material: PROHANCE; Contrast volume: 19 ml; Contrast route: IV; COMPARISON: VENOUS/LOW UNI W/COMP.-LT 08/27/2014 5:44 PM FINDINGS: Bones and cartilage: A calcaneal spur is identified. Thickening of proximal plantar fascia. There is minimal increased signal intensity between the proximal plantar fascia and a calcaneal spur, and minimal plantar fasciitis cannot be excluded. Mild cystic/edematous change within the medial cuneiform bone with mild edema within the adjacent navicular bone. This is likely secondary to arthropathy or neuropathic changes. There is enhancement of this marrow edema. Arthropathy visualized at the 1st and 2nd metatarsal-tarsal joints. Mild degenerative spurring of the medial malleolus. There is a tiny osseous cyst involving the medial talar dome, which is likely degenerative or due to prior trauma. Minimal cystic change within the bone marrow of the distal fibula. No dislocation of the ankle. Joint spaces: Small tibiotalar and subtalar joint effusions. LIGAMENTS: Distal tibiofibular syndesmosis: No visualized tear. Anterior talofibular ligament: No visualized tear. Posterior talofibular ligament: No visualized tear. Calcaneofibular ligament: There is a severe decrease in caliber of the calcaneofibular ligament, with at least partial tear. Deltoid ligament complex: Heterogeneous signal intensity of the deltoid ligament, without a well-defined tear. Spring ligament complex: Minimal fluid within the spring ligament recess. TENDONS: Flexor tendons of foot: Unremarkable as visualized. Tibialis posterior tendon: See Peroneal tendons finding. Peroneal tendons: Minimal tenosynovitis of the peroneal tendons. Minimal tenosynovitis of the posterior tibialis tendon. Extensor tendons of foot: Unremarkable as visualized. Tibialis anterior tendon: Unremarkable as visualized. Achilles tendon: Edema within the distal soleus muscle at the musculotendinous junction with the Achilles tendon. Muscle strain and myositis are within the differential. Tarsal canal (Sinus tarsi): Significant edema within the sinus tarsi, which can be associated with sinus tarsi syndrome. There is extension of edema into the adjacent soft tissues. Muscles: See above. Soft tissues: Minimal fluid within the retrocalcaneal bursa. Mild soft tissue edema medial to the calcaneocuboid joint. No abnormally enhancing soft tissue mass is identified. Plantar fascia: See Bones and cartilage finding. IMPRESSION: 1. Mild cystic/edematous change within the medial cuneiform bone with mild edema within the adjacent navicular bone. This is likely secondary to arthropathy or neuropathic changes. 2. Small tibiotalar and subtalar joint effusions. 3. Significant edema within the sinus tarsi, which can be associated with sinus tarsi syndrome. There is extension of edema into the adjacent soft tissues. 4. Arthropathy visualized at the 1st and 2nd metatarsal-tarsal joints. 5. Minimal tenosynovitis of the peroneal tendons. Minimal tenosynovitis of the posterior tibialis tendon. 6. There is a severe decrease in caliber of the calcaneofibular ligament, with at least partial tear. 7. Edema within the distal soleus muscle at the musculotendinous junction with the Achilles tendon. Muscle strain and myositis are within the
== END ==
PROVIDERS: PCP Internal Medicine Adolescent Medicine; Visit Provider Podiatrist
DX: M76.822 Posterior tibial tendinitis, left leg (principal); S86.112A Strain of other muscle(s) and tendon(s) of posterior muscle group at lower leg level, left leg, initial encounter
CPT/HCPCS: 73723; A9576

== ENCOUNTER 2021-11-19 10:00 | Outpatient (RCR) | payer BC, MEDICARE, SELFPAY ==
--- NOTE | 2021-09-09 11:40 | HMH.PTOPEV ---
PT Outpatient Evaluation Rehab PT Outpatient Evaluation Start: 09/09/21 11:26 Freq: Status: Active Protocol: Document 09/09/21 11:26 CARI (Rec: 09/09/21 11:39 CARI [id number]) Electronically Signed By Pravin Ferro, PT 09/09/21 11:26 Outpatient Therapy Subjective History Subjective History Patient is a 71 year old male presenting to outpatient PT with reports of L foot/ankle pain starting approximatley 7 months ago of indsidious onset . Most recent imaging indicates L posterior tibialis tendinitis and navicular OA. Comorbidities include hx of R knee TKA. Chief Complaint Pain Symptom Type Throb Symptoms Relieved By Rest/Positioning,Prescription Meds Symptoms Aggravated By Standing,Physical Activity, Walking Prior Functional Limitations None Current Functional Limitations Standing,Walking Symptom Description Intermittent Level of pain today (0-10) 3 Pain scale - at its best (0-10) 0 Pain scale - at its worst (0-10) 6 Ankle/Foot Eval Gait Observation General Gait Pattern Observation Antalgic Gait,Decrease Weight Bear (L) Assistive Device Ambulation Assistive Device None Palpation Tenderness left Ankle/Foot Palpation Findings Tenderness Ankle/Foot Palpation Overall Comment Distal post-tib insertion, navicular 3/4 ROM Ankle/Foot Dorsiflexion w/Knee Extended 4 Active Range Motion (degrees) Ankle/Foot Dorsiflexion w/Knee Extended 7 Passive Range (degrees) Ankle/Foot Plantar Flexion Active Range WFL of Motion (degrees) Ankle/Foot Eversion Active Range of 18 Motion (degrees) Ankle/Foot Eversion Passive Range of 23 Motion (degrees) Ankle/Foot Inversion Active Range of 18 Motion (degrees) Ankle/Foot Inversion Passive Range of 21 Motion (degrees) Ankle/Foot ROM Limitations Soft Tissue Tightness,Bony Restriction Great Toe ROM Reason Not Measured Within Functional Limits Accessory Movements Ankle Accessory Movements that Elicit Talus Dorsal [place],Talus Symptoms Ventral [place] MMT left Ankle Dorsiflexion Strength Grade 5 Normal Ankle Plantarflexion Strength Grade 5 Normal Foot Eversion Strength Grade 4 Good Foot Inversion Strength Grade 4 Good Special Tests Ankle Anterior Drawer Test Negative Left Ankle Eversion Test Negative L
--- NOTE | 2021-10-16 11:39 | HMH.RHREAS ---
Rehab Reassessment Rehab OP Re-assessment Start: 10/16/21 11:27 Freq: Status: Active Protocol: Document 10/16/21 11:28 CARI (Rec: 10/16/21 11:38 CARI [id number]) Electronically Signed By Pravin Ferro, PT 10/16/21 11:28 Rehab Re-assessment Subjective Subjective Patient reports 75% improvement since start of care. Objective Objective Notes AROM: DF 6; PF 57; INV 31; EV 21 MMT: DF/PF WNL; INV/EV 4+/5 Pain: 2/10 today; 4/10 at worst over past week Neuro WNL Special tests: negative TTP: talonavicular joint/ distal posterior tibialis tendon 2/4 Assessment Progress Assessment Progressing as Expected Assessment Notes Objective improvements as noted above. PT in conjunction with injections has shown some significant improvements. PT has mainly consisted of LLE stretching, strengthening, manual joint mobilization/stretching and modalities for pain/ inflammation. Patient would benefit from continuing skilled PT services to address persistent functional limitations with prolonged standing, ambulatory and recreational activities. Patient goals met STG's Goals Not Met LTG's Revised Goals NA Plan Plan Continue with current POC. Frequency of Therapy 2x/week Duration of therapy 4 weeks Time and Billing Re-Eval Time 15 Re-Eval Billing Units 1 PHYSICIAN CERTIFICATION: I certify the specified therapy services for Chase Vance are required, authorized, and reviewed every 30 days.
== END 2021-11-19 10:05 | disposition home or self-care (01) ==
LOC: PT 10:00
PROVIDERS: PCP Internal Medicine Adolescent Medicine; Visit Provider Podiatrist
DX: M25.572 Pain in left ankle and joints of left foot (principal); S86.112A Strain of other muscle(s) and tendon(s) of posterior muscle group at lower leg level, left leg, initial encounter; M25.372 Other instability, left ankle; M76.822 Posterior tibial tendinitis, left leg
CPT/HCPCS: 97010; 97014; 97035; 97110; 97140; 97163; 97164; G0283

== ENCOUNTER → 2022-04-23 08:20 | Outpatient (CLI) | payer BC, MEDICARE, SELFPAY ==
[2022-04-23 08:53] LABS: Basophils # 0.1 K/mm3 (0-0.2); Basophils % 1.5 % (0.1-2.0); Eosinophils # 0.4 K/mm3 (0.0-0.4); Eosinophils % 4.3 % (0.1-12.0); Hematocrit 49.1 % (42.0-52.0); Hemoglobin 16.1 g/dL (14.1-18.0); Lymphocytes # 1.7 K/mm3 (0.7-4.5); Lymphocytes % 19.1 % (10-50); Mean Corpuscular HGB Conc 32.9 g/dL (31.8-35.4); Mean Corpuscular Hemoglobin 31.3 pg (27.0-31.2); Mean Corpuscular Volume 95.2 fl (80-94); Mean Platelet Volume 7.8 fl (7.4-10.4); Monocytes # 0.4 K/mm3 (0.1-1.0); Monocytes % 4.7 % (1.7-9.3); Neutrophils # 6.2 K/mm3 (1.8-7.8); Neutrophils % 70.4 % (37.0-80.0); Platelet Count 272 K/mm3 (142-424); Red Blood Count 5.16 M/mm3 (4.60-6.20); Red Cell Distribution Width 13.1 % (11.5-17.5); White Blood Count 8.7 K/mm3 (4.8-10.8)
[2022-04-23 09:52] LABS: Hemoglobin A1C 5.3 % (4.0-6.0)
[2022-04-23 10:09] LABS: Chloride 104 mmol/L (98-107)
[2022-04-23 10:10] LABS: Potassium 4.3 mmoL/L (3.5-5.1); Sodium 142 mmol/L (136-145)
[2022-04-23 10:12] LABS: Alanine Aminotransferase 27 U/L (12-78); Albumin Level 4.3 g/dl (3.5-5.0); Alkaline Phosphatase 46 U/L (38-126); Aspartate Amino Transferase 36 U/L (17-59); Bilirubin,Total 0.7 mg/dl (0.2-1.3); Blood Urea Nitrogen 13 mg/dl (9-20); Estimated Glomerular Filt Rate 83 ml/min (>60); GFR (African American) 101 ML/MIN (>60); Globulin 2.2 g/dL (1.3-3.2); Total Protein,Serum 6.5 g/dl (6.3-8.2)
[2022-04-23 10:13] LABS: Cholesterol 175 mg/dl (140-200); Triglycerides 106 mg/dl (30-150); VLDL Cholesterol 21 mg/dL (0-40)
[2022-04-23 10:15] LABS: Calcium 9.1 mg/dl (8.4-10.2); Chol/HDL Ratio 4.9 (1-3.5); Glucose 108 mg/dl (74-100); HDL Cholesterol 36 mg/dl (40-60)
[2022-04-23 10:24] LABS: Direct LDL Cholesterol 109.19 mg/dL (100-129)
[2022-04-23 10:50] LABS: Prostate Specific Ag Screen 0.6 ng/ml (0.0-4.0)
[2022-04-23 11:01] LABS: Anion Gap 12.3 mEq/L (5-15); Carbon Dioxide 30 mmol/L (22.0-30.0)
== END ==
PROVIDERS: PCP Internal Medicine Adolescent Medicine; Visit Provider Internal Medicine Adolescent Medicine
DX: Z00.00 Encounter for general adult medical examination without abnormal findings (principal); Z79.899 Other long term (current) drug therapy; Z12.5 Encounter for screening for malignant neoplasm of prostate
CPT/HCPCS: 36415; 80053; 80061; 83036; 85025; G0103

== ENCOUNTER → 2022-04-28 15:20 | Outpatient (CLI) | payer BC, MEDICARE, SELFPAY ==
--- NOTE | 2022-04-28 15:30 | XR_ITS ---
FINAL REPORT CLINICAL HISTORY: ankle pain FINDINGS: Left ankle Three views were obtained. There is no acute fracture or dislocation. There are mild degenerative changes. A plantar calcaneal spur is identified. No soft tissue abnormality is identified. IMPRESSION: No acute process. Reviewed, Interpreted and Dictated by Matt Li III, MD Transcribed by Najma Toledo Authenticated and [facility]
--- NOTE | 2022-04-28 15:30 | XR_ITS ---
FINAL REPORT CLINICAL HISTORY: foot pain COMPARISON: 02/10/2021 FINDINGS: Left foot Three views were obtained. There is no acute fracture or dislocation. There are mild degenerative changes. No soft tissue abnormality is identified. IMPRESSION: No acute process. Reviewed, Interpreted and Dictated by Matt Li III, MD Transcribed by Najma Toledo Authenticated and . [facility]
== END ==
PROVIDERS: PCP Internal Medicine Adolescent Medicine; Visit Provider Podiatrist
DX: M25.572 Pain in left ankle and joints of left foot (principal); M79.672 Pain in left foot
CPT/HCPCS: 73610; 73630

== ENCOUNTER → 2022-05-08 08:29 | Outpatient (CLI) | payer BC, MEDICARE, SELFPAY ==
--- NOTE | 2022-05-08 08:29 | MR_ITS ---
FINAL REPORT CLINICAL HISTORY: PAIN, SWELLING. medial sided ankle pain x1 year ago. no injury or trauma. intermittent swelling in ankle. 18ml prohance given, COMPARISON: June 2021 FINDINGS: Multiple planar MR imaging of the left ankle was performed with and without contrast. There is no evidence of fracture. There are mild degenerative changes. There is a small subchondral cyst in the medial talar dome, stable. Thinning of the anterior talofibular ligament likely represents sequela of prior partial tear. There is a high-grade or complete tear of the calcaneofibular ligament again seen. Mild posterior tibial, peroneus longus, and peroneus brevis tenosynovitis. There are small tibiotalar and subtalar joint effusions. There is posterior plantar fasciitis with a small partial tear at the insertion, stable from prior. There is improvement in the abnormal signal in the distal soleus on the prior exam. There is contrast enhancement at the posterior plantar aponeurosis at the small tear. IMPRESSION: Posterior plantar fasciitis with small tear at the insertion, stable. High-grade or complete tear of the calcaneofibular ligament. Thinning of the anterior talofibular ligament may represent sequela of prior partial tear. Mild posterior tibial, peroneus longus, and peroneus brevis tenosynovitis. Mild degenerative change with a stable small subchondral cyst in the medial talar dome. Ankle joint effusions. Reviewed, Interpreted and Dictated by Matt Li III, MD Transcribed by Willard Crane Authenticated and . [facility]
== END ==
PROVIDERS: PCP Internal Medicine Adolescent Medicine; Visit Provider Podiatrist
DX: S93.422A Sprain of deltoid ligament of left ankle, initial encounter (principal); M25.372 Other instability, left ankle; M66.872 Spontaneous rupture of other tendons, left ankle and foot; R60.0 Localized edema
CPT/HCPCS: 73723; A9576

== ENCOUNTER → 2023-04-02 07:48 | Outpatient (CLI) | payer BC, MEDICARE, SELFPAY ==
[2023-04-02 08:29] LABS: Basophils # 0.1 K/mm3 (0-0.2); Basophils % 0.8 % (0.1-2.0); Eosinophils # 0.6 K/mm3 (0.0-0.4); Eosinophils % 8.1 % (0.1-12.0); Hematocrit 49.9 % (42.0-52.0); Hemoglobin 15.8 g/dL (14.1-18.0); Lymphocytes # 2.2 K/mm3 (0.7-4.5); Lymphocytes % 29.9 % (10-50); Mean Corpuscular HGB Conc 31.7 g/dL (31.8-35.4); Mean Corpuscular Hemoglobin 29.7 pg (27.0-31.2); Mean Corpuscular Volume 93.9 fl (80-94); Mean Platelet Volume 6.8 fl (7.4-10.4); Monocytes # 0.3 K/mm3 (0.1-1.0); Monocytes % 3.6 % (1.7-9.3); Neutrophils # 4.3 K/mm3 (1.8-7.8); Neutrophils % 57.5 % (37.0-80.0); Platelet Count 257 K/mm3 (142-424); Red Blood Count 5.31 M/mm3 (4.60-6.20); Red Cell Distribution Width 12.7 % (11.5-17.5); White Blood Count 7.5 K/mm3 (4.8-10.8)
[2023-04-02 08:47] LABS: Hemoglobin A1C 5.5 % (4.0-6.0)
[2023-04-02 08:55] LABS: Alanine Aminotransferase 27 U/L (12-78); Albumin Level 4.2 g/dl (3.5-5.0); Albumin/Globulin Ratio 1.8 (1.1-1.8); Alkaline Phosphatase 44 U/L (38-126); Anion Gap 12.5 mEq/L (5-15); Aspartate Amino Transferase 29 U/L (17-59); Bilirubin,Total 0.6 mg/dl (0.2-1.3); Blood Urea Nitrogen 15 mg/dl (9-20); Calcium 9.4 mg/dl (8.4-10.2); Carbon Dioxide 28 mmol/L (22.0-30.0); Chloride 104 mmol/L (98-107); Chol/HDL Ratio 5.9 (1-3.5); Cholesterol 190 mg/dl (140-200); Estimated Glomerular Filt Rate 74 ml/min (>60); GFR (African American) 89 ML/MIN (>60); Globulin 2.4 g/dL (1.3-3.2); Glucose 109 mg/dl (74-100); HDL Cholesterol 32 mg/dl (40-60); Potassium 4.5 mmoL/L (3.5-5.1); Sodium 140 mmol/L (136-145); Total Protein,Serum 6.6 g/dl (6.3-8.2); Triglycerides 169 mg/dl (30-150); VLDL Cholesterol 34 mg/dL (0-40)
[2023-04-02 09:27] LABS: Prostate Specific Ag Screen 1.4 ng/ml (0.0-4.0)
== END ==
PROVIDERS: PCP Internal Medicine Adolescent Medicine; Visit Provider Internal Medicine Adolescent Medicine
DX: Z00.00 Encounter for general adult medical examination without abnormal findings (principal); E78.5 Hyperlipidemia, unspecified; Z84.89 Family history of other specified conditions; Z79.899 Other long term (current) drug therapy; Z12.5 Encounter for screening for malignant neoplasm of prostate
CPT/HCPCS: 36415; 80053; 80061; 83036; 85025; G0103

== ENCOUNTER 2024-04-10 07:12 | Outpatient (CLI) | payer MEDICARE, BC, SELFPAY ==
[2024-04-10 08:09] LABS: Basophils # 0.1 K/mm3 (0-0.2); Basophils % 0.9 % (0.1-2.0); Eosinophils # 0.7 K/mm3 (0.0-0.4); Eosinophils % 8.3 % (0.1-12.0); Hematocrit 48.6 % (42.0-52.0); Hemoglobin 15.3 g/dL (14.1-18.0); Lymphocytes # 2.5 K/mm3 (0.7-4.5); Lymphocytes % 31.9 % (10-50); Mean Corpuscular HGB Conc 31.5 g/dL (31.8-35.4); Mean Corpuscular Hemoglobin 30.1 pg (27.0-31.2); Mean Corpuscular Volume 95.7 fl (80-94); Mean Platelet Volume 7.9 fl (7.4-10.4); Monocytes # 0.4 K/mm3 (0.1-1.0); Monocytes % 4.6 % (1.7-9.3); Neutrophils # 4.3 K/mm3 (1.8-7.8); Neutrophils % 54.3 % (37.0-80.0); Platelet Count 266 K/mm3 (142-424); Red Blood Count 5.08 M/mm3 (4.60-6.20); Red Cell Distribution Width 13.4 % (11.5-17.5)
[2024-04-10 08:33] LABS: Hemoglobin A1C 5.5 % (4.0-6.0)
[2024-04-10 09:10] LABS: Alanine Aminotransferase 25 U/L (12-78); Albumin/Globulin Ratio 1.6 (1.1-1.8); Alkaline Phosphatase 48 U/L (38-126); Anion Gap 8.5 mEq/L (5-15); Aspartate Amino Transferase 29 U/L (17-59); Bilirubin,Total 0.5 mg/dl (0.2-1.3); Blood Urea Nitrogen 14 mg/dl (9-20); Calcium 9.3 mg/dl (8.4-10.2); Carbon Dioxide 27 mmol/L (22.0-30.0); Chloride 108 mmol/L (98-107); Chol/HDL Ratio 4.7 (1-3.5); Cholesterol 180 mg/dl (140-200); Estimated Glomerular Filt Rate 83 ml/min (>60); GFR (African American) 100 ML/MIN (>60); Globulin 2.5 g/dL (1.3-3.2); Glucose 110 mg/dl (74-100); HDL Cholesterol 38 mg/dl (40-60); Potassium 4.5 mmoL/L (3.5-5.1); Sodium 139 mmol/L (136-145); Total Protein,Serum 6.5 g/dl (6.3-8.2); Triglycerides 96 mg/dl (30-150); VLDL Cholesterol 19 mg/dL (0-40)
[2024-04-10 09:21] LABS: Direct LDL Cholesterol 120.76 mg/dL (100-129)
[2024-04-10 09:41] LABS: Prostate Specific Ag Screen 0.9 ng/ml (0.0-4.0)
== END 2024-04-10 23:59 | disposition home or self-care (01) ==
LOC: LAB 07:14
PROVIDERS: PCP Internal Medicine Adolescent Medicine; Visit Provider Internal Medicine Adolescent Medicine
DX: E78.5 Hyperlipidemia, unspecified (principal); J45.21 Mild intermittent asthma with (acute) exacerbation; R73.9 Hyperglycemia, unspecified; Z12.5 Encounter for screening for malignant neoplasm of prostate
CPT/HCPCS: 36415; 80053; 80061; 83036; 85025; G0103

== ENCOUNTER 2025-04-05 07:01 | Outpatient (CLI) | payer MEDICARE, SELFPAY ==
--- OUTSIDE RECORDS SUMMARY | 2025-04-05 07:04 | XMS_ITS | Encounter Summary ---
Author Organization [facility] ([place], [place], [place], [place]) Address [address] [place] [address] Care Team Providers Care Sales Team Recruiter Name Role Phone Unavailable Primary Care Provider Unavailabl e Encounter Details Date Type Department Care Team (Late st Contact Info) Description 07/20/2018 Transcribed Document [facility] [place] [address] ProviderKiran MD [address] [place] [address] Social History Tobacco Use Types Packs/Day Years Used Date Smoking Tobacco: Never Assessed Sex and Gender Information Value Date Recorded Sex Assigned at Male 01/20/2022 8:26 PM CDT Legal Sex Male 8:26 PM CDT Gender Identity Male 01/20/2022 8:26 PM CDT Sexual Orientation Not on file documented as of this encounter Miscellaneous Notes * Cerner Conversion Note - Historical ProviderMD - 07/20/2018 8:27 AM STUDIO RECEPTIONIST Patient: CHASE FRAGA Age: 68 years Sex: Male : 1950 Associated Diagnoses: None Author: Angelica Greenfield APRN 07/20/18 cc: medical management s/p right total knee arthroplasty HPI: Patient is a 68 yo male admitted to [facility] per Dr. Venegas for a right total knee arthroplasty. Preoperatively patient was found to have advanced osteoarthritis of the right knee and elected surgical intervention after failing conservative treatment. Patient is followed perioperatively while hospitalized for medical management. Initial visit with patient preoperatively where he reports beiing relatively good health leading up to surgery. He does have chronic backpain and underwent a fusion by Dr. peterson at several years ago. he states he tweaked it on wednesday and has been applying heat to it but avoided his anti-inflammatoried because of scheduled knee surgery. Patient denies any recent exacerbations of chronic medical problems. Patient denies recent cardiopulmonary symptoms in the weeks leading up to surgery. Patient denies recent fever, chills or nightsweats. Patient denies recent sinus infection, bronchitis, or pneumonia. Denies recent asthma exacerbations. Denies gastroenteritis. Denies chest pain, pressure or palpitations. Denies recent antibiotics or med changes by PCP. Patients physical limitations are limited by right knee disability. Past Med Hx: Arthritis Asthma Back pain HLD (hyperlipidemia) HTN (hypertension) Knee pain, right Past Surg Hx: arthrocopic meniscus repair colonoscopy L5-S1 lumbar fusion sinus surgery Family Hx: melanima (father), HTN (mother) Social & Psychosocial Habits Alcohol 06/29/2018 Alcohol Use History, Social Habits Yes Alcohol Use Frequency Not used in over 2 months Substance Abuse 06/29/2018 Recreational Drug Use History No Recreational Drug Use Last 12 Months No Tobacco 06/29/2018 Smoking Status Never (less than 100 in l Smokeless Tobacco Status Never Allergies (1) Active Reaction No Known Allergies None Documented Home Medications (9) Active Advair Diskus 250 mcg-50 mcg inhalation powder 2 Puff, Inhalation, BID aspirin 81 mg, Oral, Daily Fish Oil 1,040 mg, Oral, Daily lisinopril 20 mg, Oral, Daily Metamucil 1.7 Gram, Oral, Daily multivitamin , Oral, Daily simvastatin 40 mg oral tablet 40 mg = 1 Tab, Oral, At Bedtime Zetia 10 mg oral tablet 10 mg = 1 Tab, Oral, Daily zolpidem 10 mg, Oral, At Bedtime ROS: Constitutional: [No fevers, chills, sweats] Eye: [No recent visual problems] HEENT: [No ear pain, nasal congestion] Respiratory: [No shortness of breath, cough, has not used rescue inhaler in years] Cardiovascular: [No Chest pain, palpitations, syncope, shortness of breath while laying flat] Gastrointestinal: [No nausea, vomiting, diarrhea, +hx of post-op constipation] Genitourinary: [No hematuria, dysuria] Musculoskeletal: [+ back pain, +right knee pain, ecreased range of motion] Integumentary: [No rash, pruritus] Neurologic: [No weakness, numbness] Psychiatric: [No anxiety, depression] Exam: No qualifying data available PE: white male, pleasant, cooperative, good historian, seen preop with at bedside nc/at, eomi, PEERL, pink conjunctiva, dry mucous membranes, no thyromegaly or cervical lymphadenopathy =expansion b/l , no wheezing or rhonchi non-displaced PMI, S1S2 ABD is obese, soft non-tender, non-distended, norm bowel sounds skin warm, dry without rashes ext: 1+low ext edema, no calf tenderness neuro: cn 2-12 intact; no gross motor -sensory deficits psych: appropriate affect and mood Data: reviewed CBC, BMP, coags A1C 5.8 EKG-NSR 71 Impression: OA right knee, awaiting RTHA per Dr. Venegas acute on chronic back pain prediabetes hx Arthritis hx Asthma hx Back pain hx HLD (hyperlipidemia) hx HTN (hypertension) hx Knee pain, right hx arthrocopic meniscus repair hx colonoscopy hx L5-S1 lumbar fusion hx sinus surgery Plan: monitor back pain, pain meds will be added per surgery discussed prediabetes and recommended lifestyle modifications Monitor HTN; add PRN's, hold parameters bowel regimen incentive spirometer PT/OT DVT prophylaxis noted Pain management deferred to surgeon will monitor hb/hct daily for signs of ongoing acute blood loss will monitor bun/cr daily for signs of dehydration, prerenal azotemia will monitor for signs/symptoms of post-op wound infection or hospital acquired infectious process resume outpatient medication regimen for comorbidities Assessment and treatment plan made in conjunction with Claus Guevara MD see supporting data below *[facility] Allergies: Allergic Reactions (Selected) No Known Allergies, Allergies (1) Active Reaction No Known Allergies None Documented Current medications: (Selected) Documented Medications Documented Advair Diskus 250 mcg-50 mcg inhalation powder: 2 Puff, Inhalation, BID, 0 Refill(s) Fish Oil: 1,040 mg, Oral, Daily, 0 Refill(s) Metamucil: 1.7 Gram, Oral, Daily, 0 Refill(s) Zetia 10 mg oral tablet: 1 Tab, Oral, Daily, 0 Refill(s) aspirin: 81 mg, Oral, Daily, 0 Refill(s) lisinopril: 20 mg, Oral, Daily, 0 Refill(s) multivitamin: Oral, Daily, 0 Refill(s) simvastatin 40 mg oral tablet: 1 Tab, Oral, At Bedtime, 0 Refill(s) zolpidem: 10 mg, Oral, At Bedtime, 0 Refill(s), Home Medications (9) Active Advair Diskus 250 mcg-50 mcg inhalation powder 2 Puff, Inhalation, BID aspirin 81 mg, Oral, Daily Fish Oil 1,040 mg, Oral, Daily lisinopril 20 mg, Oral, Daily Metamucil 1.7 Gram, Oral, Daily multivitamin , Oral, Daily simvastatin 40 mg oral tablet 40 mg = 1 Tab, Oral, At Bedtime Zetia 10 mg oral tablet 10 mg = 1 Tab, Oral, Daily zolpidem 10 mg, Oral, At Bedtime , No qualifying data available Problem list: Medical Arthritis / SNOMED CT 6022432 / Confirmed Asthma / SNOMED CT 475685583 / Confirmed Back pain / SNOMED CT 506089174 / Confirmed HLD (hyperlipidemia) / SNOMED CT 17611292 / Confirmed HTN (hypertension) / SNOMED CT 4276586247 / Confirmed Knee pain, right / SNOMED CT 25975141 / Confirmed, Active Problems (6) Arthritis Asthma Back pain HLD (hyperlipidemia) HTN (hypertension) Knee pain, right Objective VS/Measurements No qualifying data available documented in this encounter Plan of Treatment Not on file documented as of this encounter Visit Diagnoses Not on filedocumented in this encounter
--- OUTSIDE RECORDS SUMMARY | 2025-04-05 07:04 | XMS_ITS | Clinical Summary ---
Author Organization [facility] Address [address] [place] [address] Care Team Providers Care Flanging Machine Operator Name Role Phone Lalito Martin MD Primary Care Provider [phone] Khoi Reynolds MD Unavailable [phone] Allergies No known active allergies Medications Aspirin Buf,CaCarb-MgCar b-MgO, 81 MG tablet 03/26/2020 Active cyclobenzaprine (Flexeril) 5 MG tablet 1 po tid 11/20/2020 Active ezetimibe (Zetia) 10 MG tablet 03/26/2020 Active fluticasone-salm eterol (Advair Diskus) 250-50 MCG/DOSE diskus inhaler 03/26/2020 Active lisinopril 20 MG tablet 03/26/2020 Active simvastatin (Zocor) 20 MG tablet every 6 (six) hours. 03/26/2020 Active zolpidem (Ambien) 10 MG tablet TAKE 1 TABLET DAILY AT BEDTIME. 06/19/2013 Active Active Problems Problem Noted Date Diagnosed Date Pain in right knee 01/25/2017 Tear of medial meniscus of knee 01/25/2017 Status post lumbar spinal fusion 09/05/2014 Lower extremity pain, right 08/16/2014 Spondylolisthesis of lumbosacral region 03/15/20 14 Degenerative disc disease, lumbar 06/27/2013 Spondylolisthesis, acquired 06/27/2013 Spondylosis of lumbosacral r egion without myelopathy or radiculopathy 06/27/2013 Back pain 06/07/2013 Family History Medical History Relation Name Comments Hypertension Father Hypertension Mother Hypertension Other Relation Name Status Comments Father Mother Other Social History Tobacco Use Types Packs/Day Years Used Date Smoking Tobacco: Never Smokeless Tobacco: Never Alcohol Use Standard Drinks/Week Comments Yes 0 (1 standard drink = 0.6 oz pur e alcohol) social Sex and Gender Information Value Date Recorded Sex Assigned at Not on file Legal Sex Male 8:37 PM EDT Gender Identity Not on file Sexual Orientation Not on file Last Filed Vital Signs Vital Sign Reading Time Taken Comments Blood Pressure 128/86 07/08/2021 11:13 AM EST Pulse 85 11/20/2020 1:57 PM EDT Temperature 36.9 C (98.4 F) 10/22/2020 1:18 PM EDT Respiratory Rate - - Oxygen Saturation - - Inhaled Oxygen Concentration - - Weight 87.5 kg (193 lb) 07/08/2021 11:13 AM EST Height 175.3 cm (5' 9 ) 07/08/2021 11:13 AM EST Body Mass Index 28.5 07/08/2021 11:13 AM EST Plan of Treatment Health Maintenance Due Date Last Done Comments [facility]-Depression Screening 1950 [facility]-Infant/Child/Adol SDOH Screenings 1950 [facility]- SDOH Screenings 1969 [facility]-Adult SDOH Screenings 1969 CT Colonography 1996 Colonoscopy 1996 FIT-DNA 1996 FIT 1996 FOBT 1996 Sigmoidoscopy 1996 [facility]-Colorectal Cancer Screening 1996 [facility]-Pneumococcal Vaccine: 50 + Years (1 of 1 - PCV) 2001 [facility]-Zoster Vaccines (1 of 2) 2001 [facility]AL-CPIHA-36 Vaccine ( - season) 2025 06/11/2021, 10/23/2020, 09/25/2020 [facility]-Influenza Vaccine (#1) 03/26/202505/25, 05/14/2017 [facility]-RSV Vaccine: 60+ Years o r (1 - 1-dose 75+ series) 2026 [facility]-DTaP,Tdap,and Td Vaccine s (2 - Td or Tdap) 04/14/2031 04/14/2021 [facility]-Hepatitis A Vaccines Aged Out 019, 07/07/2018 No longer eligible based on patient's age to complete this topic HPV Vaccines Aged Out No longer eligi ble based on patient's age to complete this topic [facility]-HIB Vaccines Aged Out No longer e ligible based on patient's age to complete this topic [facility]-IPV Vaccines Aged Out No longer e ligible based on patient's age to complete this topic [facility]-Rotavirus Vaccines Aged Out No lo nger eligible based on patient's age to complete this topic Insurance [facility] [place] [address] Care Teams Flanging Machine Operator Relationship Specialty Start Date End Date Lalito Martin MD [address] [place] [address] PCP - General 12/06/20 Khoi Reynolds MD [address] [facility] [address] [place] [id number] Surgeon Neurosurgery 01/07/21
--- OUTSIDE RECORDS SUMMARY | 2025-04-05 07:04 | XMS_ITS | Clinical Summary ---
Author Organization [facility] ([place], [place], [place], [place]) Address [address] [place] [address] Care Team Providers Care Medical Laboratory Technical Officer Name Role Phone Unavailable Primary Care Provider Unavailabl e Social History Tobacco Use Types Packs/Day Years Used Date Smoking Tobacco: Never Assessed Sex and Gender Information Value Date Recorded Sex Assigned at Male 01/20/2022 8:26 PM CDT Legal Sex Male 8:26 PM CDT Gender Identity Male 01/20/2022 8:26 PM CDT Sexual Orientation Not on file Plan of Treatment Not on file
--- OUTSIDE RECORDS SUMMARY | 2025-04-05 07:04 | XMS_ITS | Encounter Summary ---
Author Organization [employer] ([place], [place], [place], [place]) Address [address] [place] [address] Care Team Providers Care Client Services Manager Name Role Phone Unavailable Primary Care Provider Unavailabl e Encounter Details Date Type Department Care Team (Late st Contact Info) Description 07/21/2018 Transcribed Document [facility] Radiology [address] [place] [address] Jennifer Guevara MD [address] [facility] [address] [place] [address] Social History Tobacco Use Types Packs/Day Years Used Date Smoking Tobacco: Never Assessed Sex and Gender Information Value Date Recorded Sex Assigned at Male 01/20/2022 8:26 PM CDT Legal Sex Male 8:26 PM CDT Gender Identity Male 01/20/2022 8:26 PM CDT Sexual Orientation Not on file documented as of this encounter Miscellaneous Notes * Cerner Conversion Note - Jennifer Guevara MD - 07/21/2018 12:25 PM EST Patient: CHASE FRAGA Age: 68 years Sex: Male : 1950 Associated Diagnoses: None Author: MEKHI HAWTHORNE PA-FAM 07/21/18 cc: medical management s/p right total knee arthroplasty S: Pt is doing ok. No f'/c/s. No n/v/d. (+) gas, (-) BM. No CP, SOA, palpitations. No cough or sputum. Urinating well. +post op pain. Using incentive spirometer. ready to go home. Has had issues with postop constipation. has metamucil at home an dplanning on using miralax and other meds if needed. HPI: Patient is a 68 yo male admitted to [facility] per Dr. Venegas for a right [...] No Known Allergies None Documented Home Medications (15) Active Advair Diskus 250 mcg-50 mcg inhalation powder 2 Puff, Inhalation, BID aspirin 81 mg oral tablet 81 mg = 1 Tab, Oral, BID Colace 100 mg oral capsule 100 mg = 1 Cap, PRN, Oral, BID ferrous gluconate 325 mg (36 mg elemental iron) oral tablet 325 mg = 1 Tab, Oral, Daily Fish Oil 1,040 mg, Oral, Daily lisinopril 20 mg, Oral, Daily meloxicam 15 mg oral tablet 15 mg = 1 Tab, Oral, Daily Metamucil 1.7 Gram, Oral, Daily MS Contin 15 mg oral tablet, extended release 15 mg = 1 Tab, Oral, Q12H multivitamin , Oral, Daily Neurontin 300 mg oral capsule 300 mg = 1 Cap, PRN, Oral, At Bedtime Percocet 5/325 oral tablet 1 Tab, PRN, Oral, Q4H simvastatin 40 mg oral tablet 40 mg = 1 Tab, Oral, At Bedtime Zetia 10 mg oral tablet 10 mg = 1 Tab, Oral, Daily zolpidem 10 mg, Oral, At Bedtime Exam: Vitals Signs (last 24 hrs) Last Charted Minimum Maximum Temp 97.4 (JUL 21 05:25) 97.4 (JUL 21 05:25) 98.6 (JUL 20 11:32) Mon HR 63 (JUL 21 05:25) 59 (JUL 20 15:45) 69 (JUL 20 17:30) Periph HR 80 (JUL 20 12:04) 80 (JUL 20 11:32) 80 (JUL 20 11:32) Resp Rate 16 (JUL 21 05:25) L 10 (JUL 20 15:40) H 27 (JUL 20 16:50) SBP 116 (JUL 21 05:25) L 85 (JUL 20 15:50) H 154 (JUL 20 17:30) DBP 71 (JUL 21 05:25) L 50 (JUL 20 15:50) 83 (JUL 20 12:04) MAP 87 (JUL 21 05:25) 63 (JUL 20 15:50) 101 (JUL 20 16:10) SpO2 99 (JUL 21 05:25) 95 (JUL 20 15:55) 100 (JUL 20 15:45) PE: GEN: Alert, awake, NAD CV: S1S2, no murmur. No LE edema Resp: CTAB, NL Abd: Soft, NT, ND +BS Skin: no rashes on inspection and palpation. Ext: right knee, surgical dressing in place. No calf tenderness Neuro: A&O x 3 Data: CBC Results (Current Encounter/Past 24 Hours) WBC 10.7 K/uL HI 07/21/2018 06:02 Hct 38.8 % LOW 07/21/2018 07:26 Hgb 13.0 g/dL LOW 07/21/2018 06:02 Platelet Count 199 K/uL 07/21/2018 06:02 CMP Results (Current Encounter/Past 24 Hours) Bun/Creatinine 17.8 07/21/2018 06:13 eGFR NonAfrican 84 mL/min/1.73m2 07/21/2018 06:13 Creatinine Level 0.90 mg/dL 07/21/2018 06:13 eGFR 102 mL/min/1.73m2 07/21/2018 06:13 Sodium Level 141 mmol/L 07/21/2018 06:13 Potassium Level 4.5 mmol/L 07/21/2018 06:13 Chloride Level 108 mmol/L 07/21/2018 06:13 Carbon Dioxide Level 25 mmol/L 07/21/2018 06:13 Anion Gap 12 07/21/2018 06:13 Blood Urea Nitrogen 16 mg/dL 07/21/2018 06:13 Glucose Level 132 mg/dL HI 07/21/2018 07:26 Calcium Level 8.0 mg/dL LOW 07/21/2018 07:26 reviewed CBC, BMP, coags A1C 5.8 EKG-NSR 71 Impression: OA right knee, s/p RTHA per Dr. Venegas acute on chronic back pain prediabetes hx Arthritis hx Asthma hx Back pain hx HLD (hyperlipidemia) hx HTN (hypertension) hx Knee pain, right hx arthrocopic meniscus repair hx colonoscopy hx L5-S1 lumbar fusion hx sinus surgery Plan: ok to discharge home from IM standpoint hold BP meds if SBP is <120 at home Pain meds/dvt prophylaxis per surgery IS at home bowel regimen at home Assessment and treatment plan made in conjunction with Claus Guevara MD *Scribed by Ju Russ documented in this encounter Plan of Treatment Not on file documented as of this encounter Visit Diagnoses Not on filedocumented in this encounter
--- OUTSIDE RECORDS SUMMARY | 2025-04-05 07:04 | XMS_ITS | Referral Summary ---
Author Organization [employer] ([place], [place], [place], [place]) Address [address] [place] [address] Care Team Providers Care State Game Protector Name Role Phone Unavailable Primary Care Provider [...]
--- OUTSIDE RECORDS SUMMARY | 2025-04-05 07:04 | XMS_ITS | Encounter Summary ---
Author Organization [employer] ([place], [place], [place], [place]) Address [address] [place] [address] Care Team Providers Care Ground Water Contractor Name Role Phone Unavailable Primary Care Provider Unavailabl e Encounter Details Date Type Department Care Team (Late st Contact Info) Description 07/21/2018 Transcribed Document [facility] [place] [facility] [place] [address] ProviderKiran MD [address] [place] [id number] Social History Tobacco Use Types Packs/Day Years Used Date Smoking Tobacco: Never Assessed Sex and Gender Information Value Date Recorded Sex Assigned at Male 01/20/2022 8:26 PM CDT Legal Sex Male 8:26 PM CDT Gender Identity Male 01/20/2022 8:26 PM CDT Sexual Orientation Not on file documented as of this encounter Miscellaneous Notes * Cerner Conversion Note - Historical ProviderMD - 07/21/2018 6:44 AM 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 Patient had failed conservative measures and was ultimately offered total knee arthroplasty. Understanding risks benefits and alternatives to care patient gave written consent for the aforementioned procedure. Hospital Course Patient was taken to the operating room on date of admission where they underwent the aforementioned procedure without complication. They were then transferred to the floor for postoperative care including PT & OT, consultation of hospitalist for medical care, and discharge planning by nurse navigator Significant Findings Overall, fairly straight forward with 6 degrees of correctable varus and no significant flexion contracture. We did utilize cementless implants given his young age and excellent bone stalk. Distal femur cut at 5 degrees and 9 mm. Proximal tibia cut at 9 mm. Releases in extension included portion of deep MCL, posteromedial capsule and posteromedial tibial osteophyte. Initial extension gap 17 mm. Posterior condylar resection likewise set to 17 mm. The pre-reconstructive thickness of the patella was 25 mm, post-reconstructive thickness was 26 mm. It did track well without need for lateral release. Stable well-balanced knee with 0 mm of medial or lateral gapping at 0, 20 or 90 degrees of flexion. Range of motion with the capsule closed was 0-120 degrees. Procedures and Treatment Provided SN - Proc - Procedure: Knee Total Joint Replacement (07/20/18 14:50:34 EST) Physical Exam Vitals & Measurements T: 36.3 ??C HR: 63 (Monitored) HR: 80 (Peripheral) RR: 16 BP: 116/71 MAP: 87 SpO2: 99% The dressing is clean dry secure. The operative extremity is neurovascularly intact with the exception to which is attributed to peripheral nerve block. Compartments are soft. ROM 0-98 Discharge Plan Unilateral primary osteoarthritis, right knee M17.11, Unilateral primary osteoarthritis, right knee M17.11 Patient is weightbearing as tolerated. Patient should transition from a walker to a cane at the discretion of physical therapy. However the patient should minimize ambulation, and focus on copious ice and elevation to reduce swelling. The range of motion goal for first follow-up should be a minimum of 0-90??. Bilateral thigh-high LEANDRA hose should be worn 21+ hours per day for 6 weeks for DVT prophylaxis. Dressings remain in place for 7-10 days, during which time the patient may shower. This provided the margins of the dressing are intact. Dressings then can be removed and incision left open to air. Any wound drainage should this be reported to the orthopedic office. Continuous use of cryotherapy as needed for pain and swelling. Recommended as one hour of every 3. Orders: aspirin, 1 Tab, Oral, Tab, BID, # 84 Tab, 0 Refill(s) docusate, 1 Cap, Oral, BID, PRN for constipation, # 60 Cap, 0 Refill(s) ferrous gluconate, 1 Tab, Oral, Tab, Daily, # 100 Tab, 0 Refill(s) meloxicam, 1 Tab, Oral, Daily, # 30 Tab, 0 Refill(s) Discharge Orders No qualifying data available. Patient Discharge Condition Good Discharge Disposition Home with outpatient physical therapy in [facility] Discharge Medications Home Medications (15) Active Advair Diskus 250 [...] Daily zolpidem 10 mg, Oral, At Bedtime Lab Results JUL 21 05:05 141 108 16 / H 132 4.5 25 0.90 \ JUL 21 05:05 \ L 13.0 / H 10.7 199 / L 38.8 \ Blood Products No qualifying data available. Electronically signed by Adali Gómez Conversion Coater Operator Insulation Board Cerner at 11/08/2022 10:24 AM CDT documented in this encounter Plan of Treatment Not on file documented as of this encounter Visit Diagnoses Not on filedocumented in this encounter
[2025-04-05 07:26] LABS: Hematocrit 45.7 % (42.0-52.0); Hemoglobin 15.0 g/dL (14.1-18.0); Immature Granulocytes % 0.4 %; Mean Corpuscular HGB Conc 32.8 g/dL (31.8-35.4); Mean Corpuscular Hemoglobin 29.8 pg (27.0-31.2); Mean Corpuscular Volume 90.7 fl (80-94); Nucleated Red Blood Cells % 0 %; Platelet Count 249 K/mm3 (142-424); Red Blood Count 5.04 M/mm3 (4.60-6.20); Red Cell Distribution Width-SD 40.1 fL; White Blood Count 8.0 K/mm3 (4.8-10.8)
[2025-04-05 08:27] LABS: Potassium 4.8 mmoL/L (3.5-5.1)
[2025-04-05 08:29] LABS: Alanine Aminotransferase 22 U/L (12-78); Aspartate Amino Transferase 28 U/L (17-59); Blood Urea Nitrogen 20 mg/dl (9-20); Carbon Dioxide 27 mmol/L (22.0-30.0); Creatinine,Serum 0.90 mg/dl (0.66-1.25); Estimated Glomerular Filt Rate 83 ml/min (>60); GFR (African American) 100 ML/MIN (>60)
[2025-04-05 08:30] LABS: Alkaline Phosphatase 45 U/L (38-126); Bilirubin,Total 0.6 mg/dl (0.2-1.3); Calcium 9.8 mg/dl (8.4-10.2); Cholesterol 191 mg/dl (140-200); Glucose 109 mg/dl (74-100); Total Protein,Serum 6.6 g/dl (6.3-8.2); Triglycerides 174 mg/dl (30-150)
[2025-04-05 08:46] LABS: Albumin Level 4.4 g/dl (3.5-5.0); Albumin/Globulin Ratio 2.0 (1.1-1.8); Anion Gap 11.8 mEq/L (5-15); Chloride 105 mmol/L (98-107); Globulin 2.2 g/dL (1.3-3.2); Sodium 139 mmol/L (136-145)
[2025-04-05 08:53] LABS: Hemoglobin A1C 5.6 % (4.0-6.0)
[2025-04-05 09:26] LABS: HDL Cholesterol 38 mg/dl (40-60)
== END 2025-04-05 23:59 | disposition home or self-care (01) ==
LOC: LAB 07:02
PROVIDERS: PCP Internal Medicine Adolescent Medicine; Visit Provider Internal Medicine Adolescent Medicine
DX: E78.5 Hyperlipidemia, unspecified (principal); J45.30 Mild persistent asthma, uncomplicated; Z12.5 Encounter for screening for malignant neoplasm of prostate
CPT/HCPCS: 36415; 80053; 80061; 83036; 85025; G0103